=== PATIENT | female | born 1980 | race African-American/Black ===

== ENCOUNTER 2019-03-18 18:29 | Inpatient (IN) | payer OTHER ==
[~2019-03-18] VITALS: Ht 160 cm; Wt 76.9 kg
[~2019-03-18 18:29] MED LIST: TRIA1CAP6 PO
[2019-03-18] MEDS ORDERED: LORazepam 2 MG/ML VIAL IM ONE (18:45)
[2019-03-18] MEDS ORDERED: HALOPERIDOL LACTATE 5 MG/ML VIAL IM ONE (18:45)
[2019-03-18] MEDS ORDERED: DiphenhydrAMINE HCL 50 MG/ML VIAL IM ONE (18:45)
[2019-03-18 20:10] LABS: HEMATOCRIT 35.8 % (36-46); HEMOGLOBIN 11.3 g/dL (12.0-16.0); MEAN CORPUSCULAR HEMOGLOBIN 21.4 pg (26.0-34.0); MEAN CORPUSCULAR HGB CONC 31.6 G/dL (31.0-37.0); MEAN CORPUSCULAR VOLUME 68 fL (80-100); PLATELET COUNT (AUTO) 273 K/uL (150-450); RED CELL DISTRIBUTION WIDTH 18.7 % (11.5-14.5)
[2019-03-18 20:27] LABS: ANION GAP 11 mmol/L (8-16); CALCIUM, TOTAL 9.1 mg/dL (8.8-10.5); CARBON DIOXIDE 22 mmol/L (22-29); CHLORIDE 105 mmol/L (98-107); CREATININE 1.15 mg/dL (0.60-1.30); GLOMERULAR FILTR. RATE CALC > 60 mL/min (>60); GLUCOSE,RANDOM 81 mg/dL (70-110); POTASSIUM 3.5 mmol/L (3.5-5.1); SODIUM SERUM 138 mmol/L (136-145); UREA NITROGEN, BLOOD 10 mg/dL (7-18)
[2019-03-18 20:37] LABS: ALANINE AMINOTRANSFERASE 29 U/L (12-78); ALBUMIN 3.3 g/dL (3.4-5.0); ALKALINE PHOSPHATASE 69 U/L (46-116); ASPARTATE AMINOTRANSFERASE 38 U/L (15-37); BILIRUBIN,TOTAL 0.4 mg/dL (0.1-1.0); HCG,QUANTITATIVE < 1 mIU/mL (0-6); TOTAL PROTEIN, SERUM 6.5 g/dL (6.4-8.2)
[2019-03-18 21:20] LABS: BAND NEUTROPHILS % (MANUAL) 0 % (0-5)
[2019-03-18 21:21] LABS: EOSINOPHILS % (MANUAL) 1 % (1-6); LYMPHOCYTES % (MANUAL) 25 % (22-44); MONOCYTES % (MANUAL) 6 % (2-9); SEGMENTED NEUTROPHILS % 68 % (40-70)
[2019-03-18 21:23] LABS: AMPHET/METH SCREEN,URINE NEGATIVE (NEGATIVE); BARBITURATE SCREEN, URINE NEGATIVE (NEGATIVE); BENZODIAZEPINES SCREEN,URINE NEGATIVE (NEGATIVE); CANNABINOID SCREEN,URINE POSITIVE (NEGATIVE); COCAINE SCREEN,URINE NEGATIVE (NEGATIVE); METHADONE SCREEN, URINE NEGATIVE (NEGATIVE); OPIATE SCREEN,URINE NEGATIVE (NEGATIVE); PHENCYCLIDINE SCREEN,URINE NEGATIVE (NEGATIVE)
[2019-03-18 21:49] VITALS: BP 158/74
[2019-03-19] VITALS (7 sets, daily range): BP systolic 150–184; BP diastolic 76–112
[2019-03-19] MEDS ORDERED: HALOPERIDOL LACTATE 5 MG/ML VIAL IM ONE (04:00)
[2019-03-19] MEDS ORDERED: LORazepam 2 MG/ML VIAL IM ONE (04:00)
[2019-03-19] MEDS ORDERED: DiphenhydrAMINE HCL 50 MG/ML VIAL IM ONE (04:00)
[2019-03-19] MEDS ORDERED: LISINOPRIL 5 MG TABLET PO SCH (12:45)
[2019-03-19] MEDS ORDERED: LISINOPRIL 5 MG TABLET PO ONE (15:45)
[2019-03-19 18:50] LABS: % IRON SATURATION 23.5 % (22-44)
[2019-03-19] MEDS ORDERED: OxyCODONE HCL/ACETAMINOPHEN 5-325 MG TABLET PO ONE (19:45)
[2019-03-19] MEDS ORDERED: CloNIDine HCL 0.1 MG TABLET PO PRN (19:45)
[2019-03-19] MEDS ORDERED: CloNIDine HCL 0.1 MG TABLET PO ONE (19:45)
[2019-03-20] VITALS (8 sets, daily range): BP systolic 148–177; BP diastolic 92–110
[2019-03-20] MEDS: LISINOPRIL 10 MG TABLET PO SCH (10:59)
[2019-03-20] MEDS: ACETAMINOPHEN 325 MG TABLET PO PRN ×2 (10:59→16:39)
[2019-03-20] MEDS: DOCUSATE SODIUM 100 MG CAPSULE PO SCH ×2 (11:45→21:00)
[2019-03-20] MEDS: FERROUS SULFATE 325 MG EC TABLET PO SCH ×2 (12:00→17:55)
[2019-03-20] MEDS ORDERED: LISI10TA7 PO (13:16)
[2019-03-20] MEDS ORDERED: FERR325T22 PO (13:16)
[2019-03-20] MEDS ORDERED: LISI-660 PO (13:38)
[2019-03-20] MEDS: HydrALAZINE HCL 25 MG TABLET PO PRN (16:39)
[2019-03-20] MEDS ORDERED: ZOLPIDEM TARTRATE 5 MG TABLET PO PRN (22:15)
[2019-03-21 00:28] VITALS: BP 161/98
[2019-03-21 04:00] VITALS: BP 104/68
[2019-03-21 05:30] VITALS: BP 182/110
[2019-03-21] MEDS: HydrALAZINE HCL 25 MG TABLET PO PRN (05:34)
[2019-03-21 07:33] VITALS: BP 157/92
[2019-03-21] MEDS: FERROUS SULFATE 325 MG EC TABLET PO SCH (08:06)
[2019-03-21] MEDS: LISINOPRIL 10 MG TABLET PO SCH (08:06)
[2019-03-21] MEDS: DOCUSATE SODIUM 100 MG CAPSULE PO SCH (08:07)
[2019-03-21] MEDS ORDERED: LISINOPRIL 10 MG TABLET PO SCH (21:00)
== END 2019-03-21 11:39 | DRG 885 ==
LOC: EMS 18:30 → 6S 20:13
DX: F20.9 Schizophrenia, unspecified (principal); K21.9 Gastro-esophageal reflux disease without esophagitis; E55.9 Vitamin D deficiency, unspecified; I11.9 Hypertensive heart disease without heart failure; D50.9 Iron deficiency anemia, unspecified; F32.9 Major depressive disorder, single episode, unspecified; F17.210 Nicotine dependence, cigarettes, uncomplicated; F60.9 Personality disorder, unspecified; F63.81 Intermittent explosive disorder; F12.10 Cannabis abuse, uncomplicated; F29 Unspecified psychosis not due to a substance or known physiological condition; Z79.899 Other long term (current) drug therapy; Z88.6 Allergy status to analgesic agent
CPT/HCPCS: 70450; 82728; 83540; 83550; 93005; J1200; J1630; J2060